=== PATIENT | female | born 1995 | race Caucasian/White ===

== ENCOUNTER 2019-06-07 21:06 | Emergency (ER) | payer MEDICAID ==
[2019-06-07] MEDS ORDERED: ACETAMINOPHEN 325 MG TABLET PO ONE (21:58)
[2019-06-07] MEDS ORDERED: IPRATROPIUM/ALBUTEROL 0.5-2.5 MG/3 ML AMPUL NEB ONE (22:01)
--- NOTE | 2019-06-07 22:01 | ER Document Report ---
ED Medical Screen (RME) - General Chief Complaint: Flu Symptoms Stated Complaint: FLU SYMPTOMS/ Time Seen by Provider: 06/07/19 21:48 Primary Care Provider: BLADIMIR CANDELARIA MD [Primary Care Provider] - Follow up as needed Notes: Patient is a 21-week G1, 23-year-old female who presents to the emergency department with a cough, congestion, and fever. Patient states that she has been taking NyQuil, with little relief. She has had cough for the past week, and a fever for the past 5 days. Exam: Expiratory wheezes noted throughout all lung solomon. I have greeted and performed a rapid initial assessment of this patient. A comprehensive ED assessment and evaluation of the patient, analysis of test results and completion of medical decision making process will be conducted by an additional ED providers. TRAVEL OUTSIDE OF THE [place] IN LAST 30 DAYS: No - Related Data Allergies/Adverse Reactions: No Known Allergies Allergy (Verified 06/07/19 21:49) Home Medications: See med rec Past Medical History - Social History Chew tobacco use (# tins/day): No Frequency of alcohol use: None Drug Abuse: None Physical Exam - Vital signs Vitals: Temp Pulse Resp BP Pulse Ox 98.4 F 129 H 20 152/87 H 97 06/07/19 21:14 06/07/19 21:14 06/07/19 21:14 06/07/19 21:14 06/07/19 21:14 Course - Vital Signs Vital signs: Temp Pulse Resp BP Pulse Ox 99.0 F 81 20 131/78 H 94 06/07/19 21:29 06/07/19 21:29 06/07/19 21:29 06/07/19 21:29 06/07/19 21:29 Doctor's Discharge - Discharge Referrals: BLADIMIR CANDELARIA MD [Primary Care Provider] - Follow up as needed
--- NOTE | 2019-06-07 22:53 | RADIOLOGY REPORT (SQ) ---
EXAM DESCRIPTION: [facility]: XR CHEST 1 VIEW CLINICAL HISTORY: 23 years Female, cough/fever COMPARISON: None. FINDINGS: Lungs are clear, with no focal infiltrate, pneumothorax, or pleural effusion. Mediastinum is within normal limits for this positioning. Bony structures are unremarkable. IMPRESSION: 1. No acute pulmonary findings.
[2019-06-07 23:03] LABS: A TYPE INFLUENZA AG NEGATIVE (NEGATIVE); B INFLUENZA AG NEGATIVE (NEGATIVE)
[2019-06-08] MEDS ORDERED: IPRATROPIUM/ALBUTEROL 0.5-2.5 MG/3 ML AMPUL NEB ONE (00:09)
--- NOTE | 2019-06-08 01:48 | ER Document Report ---
ED General - General Chief Complaint: Flu Symptoms Stated Complaint: FLU SYMPTOMS/ Time Seen by Provider: 06/07/19 21:48 Primary Care Provider: BLADIMIR CANDELARIA MD [ACTIVE STAFF] - Follow up as needed TRAVEL OUTSIDE OF THE [place] IN LAST 30 DAYS: No - HPI Notes: 23-year-old female 1 para 0 at 22 weeks EGA otherwise generally healthy reporting a 10-day history of flulike symptoms. She is experienced dull headache nasal congestion cough and nausea without vomiting. Fluid intake is good at this time. She has had low-grade fever intermittently. She smokes 3 to 4 cigarettes/day. She reports that within the last 2 days she has been blowing "green snot" out of her nose and is now experiencing a pressure sensation in the right cheek area. She feels like she is getting worse. - Related Data Allergies/Adverse Reactions: No Known Allergies Allergy (Verified 06/07/19 21:49) Home Medications: See med rec Past Medical History - Social History Smoking Status: Current Every Day Smoker Chew tobacco use (# tins/day): No Frequency of alcohol use: None Drug Abuse: None Lives with: Friend Family History: Reviewed & Not Pertinent Patient has suicidal ideation: No Patient has homicidal ideation: No Physical Exam - Vital signs Vitals: Temp Pulse Resp BP Pulse Ox 98.4 F 129 H 20 152/87 H 97 06/07/19 21:14 06/07/19 21:14 06/07/19 21:14 06/07/19 21:14 06/07/19 21:14 Course - Re-evaluation Re-evalutation: 06/08/19 02:12 heart tones by Doppler obtained by the nurse 150 left lower quadrant. Clinically the patient has sinusitis. Her influenza a and B screens were both negative and her chest x-ray was normal. Patient is a smoker and she is encouraged to stop because of the respiratory infection as well as her . She will be treated with amoxicillin and Tylenol and is to increase oral fluids. 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 Return here as needed for new or worsening symptoms. - Vital Signs Vital signs: Temp Pulse Resp BP Pulse Ox 99.0 F 81 20 131/78 H 94 06/07/19 21:29 06/07/19 21:29 06/07/19 21:29 06/07/19 21:29 06/07/19 21:29 Discharge - Discharge Clinical Impression: Cigarette smoker, Intrauterine Acute sinusitis Qualifiers: Sinusitis location: maxillary Recurrence: non-recurrent Qualified Code(s): J 01.00 - Acute maxillary sinusitis, unspecified Condition: Stable Disposition: HOME, SELF-CARE Additional Instructions: Stop Smoking You should stop smoking. The tar and chemicals in cigarette smoke are harmful. Smoking has been shown to cause: Emphysema and chronic bronchitis Lung cancer Cancer of the mouth, larynx, stomach, and pancreas Heart disease and stroke Stillbirths and miscarriage Premature aging In addition, smoking increases the chances of respiratory infections and ear infections in children of smokers, and increases the risk of cancer in persons exposed to second-hand smoke. Classes are available to help you stop smoking. If you are serious about wanting to quit, we can help arrange this therapy for you, or you can contact the local lung or cancer association. Sinusitis You have sinusitis, an infection of the sinus cavities of the face. The sinuses are air-filled chambers which open into the inside of the nose. Bacteria and pus fill a sinus, causing pain, drainage, and fever. Sinusitis is treated with antibiotics. Often, expectorants (to thin the sinus mucous) or decongestants (to reduce swelling) are prescribed as well. Healing requires seven to 10 days. Avoid chemical fumes, pollens, dusts, and smoke (especially cigarette smoke). Keep the air humidified in your bedroom and work area and take plenty of liquids by mouth. This condition can be serious if the infection spreads. If your symptoms worsen, or if you develop severe headache, high fever, stiff neck, or a rash, you must call the doctor or return for re-evaluation. Follow-up with your [facility]ES E[facility]ECTIV[facility]ESS MANAGER clinic. Stop smoking. Increase oral fluids. Take Tylenol as necessary. Return here as needed for new or worsening symptoms. Prescriptions: Amoxicillin 1 tab PO TID 10 Days #30 tab Referrals: BLADIMIR CANDELARIA MD [ACTIVE STAFF] - Follow up as needed
[2019-06-08 02:31] VITALS: BP 125/83
== END 2019-06-08 02:31 | disposition home or self-care (01) ==
LOC: ER 21:06
DX: O99.512 Diseases of the respiratory system complicating pregnancy, second trimester (principal); J01.00 Acute maxillary sinusitis, unspecified; O26.892 Other specified pregnancy related conditions, second trimester; R51 Headache; R09.81 Nasal congestion; R11.0 Nausea; R05 Cough; R50.9 Fever, unspecified; O99.332 Smoking (tobacco) complicating pregnancy, second trimester; Z3A.22 22 weeks gestation of pregnancy
CPT/HCPCS: 87804; 71045; J3490; J7620 ×2; 94640; 99284

== ENCOUNTER 2019-09-02 19:41 | Inpatient (IN) | payer MEDICAID ==
--- NOTE | 2019-09-02 20:22 | Admission Physical ---
Datetime Report Generated by CPN: 09/02/2019 20:22 CURRENT ADMISSION Chief Complaint: Suspected Ruptured Membranes Admit Impression : , Intrauterine ; Ruptured Membranes Admit Plan: Admit to Unit; Initiate Labor Protocol ALLERGIES Medication Allergies: No Known Allergies (09/02/2019) OBSTETRICAL HISTORY EDC: 10/15/2019 00:00 : 1 Para: 0 PHYSICAL EXAM General: Normal HEENT: Normal Neurologic: Normal Thyroid: Normal Heart: Normal Lungs: Normal Breast: Deferred Back: Normal Abdomen: Normal Genitourinary Exam: Normal Extremities: Normal DTRs: Normal Pelvic Type: Adequate Vital Signs: Reviewed FETUS A EGA: 33.6 Monitoring: External US FHR- Baseline: 160 Variability: Minimal - Undetectable to <=5bpm Decelerations: None FHR Category: Category I Presentation: Vertex Admit Comment: Admit and begin abx and steroids. INFORMED CONSENT Signature: with User ID: [email or web address]
[2019-09-02] MEDS ORDERED: AMPICILLIN SODIUM 2 GM in NORMAL SALINE 100 ML IV ONE (20:51)
[2019-09-02 20:54] LABS: APPEARANCE,URINE SLIGHTLY-CLOUDY; BILIRUBIN,URINE NEGATIVE (NEGATIVE); CALCIUM OXALATE CRYSTALS,URINE MODERATE /HPF; COLOR,URINE YELLOW; GLUCOSE, URINE NEGATIVE (NEGATIVE); KETONES,URINE NEGATIVE (NEGATIVE); LEUKOCYTE ESTERASE,URINE TRACE (NEGATIVE); NITRITE,URINE NEGATIVE (NEGATIVE); PROTEIN,URINE 30 mg/dL (NEGATIVE); URINE SPECIFIC GRAVITY 1.024; UROBILINOGEN,URINE NEGATIVE mg/dL (<2.0)
[2019-09-02] MEDS ORDERED: AMPICILLIN SOD INJ 2 GM VIAL ONE (21:06)
[2019-09-02] MEDS ORDERED: BETAMET ACET/BETAMET NA INJ 6 MG/1 ML ONE (21:06)
[2019-09-02 21:11] LABS: URINE AMPHETAMINES SCREEN NEGATIVE; URINE BARBITURATES SCREEN NEGATIVE; URINE BENZODIAZEPINES SCREEN NEGATIVE; URINE COCAINE SCREEN NEGATIVE; URINE METHADONE SCREEN NEGATIVE; URINE PHENCYCLIDINE SCREEN NEGATIVE
[2019-09-02] MEDS: BETAMET ACET/BETAMET NA INJ 6 MG/1 ML IM PRN (21:15)
[2019-09-02] MEDS: RINGERS SOLUTION,LACTATED 1,000 ML IV PRN (21:16)
[2019-09-02 21:18] LABS: URINE MARIJUANA (THC) SCREEN UNCONFIRMED POSITIVE
--- NOTE | 2019-09-02 22:19 | RADIOLOGY REPORT (SQ) ---
EXAM DESCRIPTION: Limited OB ultrasound CLINICAL HISTORY: 24 years Female; ROM TECHNIQUE: Transabdominal obstetrical ultrasound was performed. COMPARISON: None. FINDINGS: Number of fetuses: Single position: Cephalic Amniotic fluid: Severe oligohydramnios is identified. Only a single pocket of fluid is identified which measures 1.7 x 0.9 cm. Cervix: Not well seen secondary to the head Placenta: Posterior. Grade 1/2 HR: 132 bpm Biometry: BPD: 8.66 cm, 35 weeks zero days, 78th percentile HC: 31.61 cm, 35 weeks four days, 56th percentile AC: 29.46 cm, 33 weeks three days, 41st percentile FL: 6.62 cm, 34 weeks one day, 46th percentile EFW: 2321 g, 46th percentile Composite Gestational Age: 34 weeks four days estimated delivery date: 10/10/2019 Anatomic survey was not performed IMPRESSION: 1. Single living intrauterine in cephalic presentation. 2. Estimated gestational age by ultrasound is 34 weeks four days with estimated delivery date of 10/10/2019. 3. Severe oligohydramnios
[2019-09-02 22:20] LABS: ABSOLUTE EOSINOPHILS # (AUTO) 0.1 10^3/uL (0.0-0.6); ABSOLUTE LYMPHOCYTES (AUTO) 2.3 10^3/uL (0.5-4.7); ABSOLUTE MONOCYTES (AUTO) 0.6 10^3/uL (0.1-1.4); ABSOLUTE NEUT (AUTO) 11.5 10^3/uL (1.7-8.2); BASOPHILS % (AUTO) 0.2 % (0-2); EOSINOPHILS % (AUTO) 0.5 % (0-6); HEMATOCRIT 30.9 % (36.0-47.0); HEMOGLOBIN 10.3 g/dL (12.0-15.5); LYMPHOCYTES % (AUTO) 15.9 % (13-45); MEAN CORPUSCULAR HEMOGLOBIN 26.2 pg (27.0-33.4); MEAN CORPUSCULAR HGB CONC 33.4 g/dL (32.0-36.0); MEAN CORPUSCULAR VOLUME 79 fl (80-97); MONOCYTES % (AUTO) 4.4 % (3-13); PLATELET COUNT 272 10^3/uL (150-450); RED BLOOD COUNT 3.94 10^6/uL (3.72-5.28); RED CELL DISTRIBUTION WIDTH 17.4 % (11.5-14.0); TOTAL CELLS COUNTED % (AUTO) 100 %; WHITE BLOOD COUNT 14.6 10^3/uL (4.0-10.5)
[2019-09-02] MEDS ORDERED: ACETAMINOPHEN 325 MG TABLET ONE (23:32)
[2019-09-03 00:20] LABS: CHLAM PCR NOT DETECTED (NOT DETECT)
[2019-09-03] MEDS ORDERED: ZOLPIDEM TARTRATE 5 MG TABLET ONE ×2 (00:53→20:24)
[2019-09-03] MEDS ORDERED: AMPICILLIN SOD INJ 1 GM VIAL IV PRN (01:00)
[2019-09-03] MEDS: ZOLPIDEM TARTRATE 5 MG TABLET PO PRN ×2 (01:05→20:26)
[2019-09-03] MEDS ORDERED: AMPICILLIN SOD INJ 1 GM VIAL IM SCH (03:00)
[2019-09-03] MEDS ORDERED: AMPICILLIN SOD INJ 2 GM VIAL IM SCH (03:00)
[2019-09-03] MEDS ORDERED: AMPICILLIN SOD INJ 2 GM VIAL ONE (05:37)
[2019-09-03] MEDS: AMPICILLIN SODIUM 2 GM in NORMAL SALINE 100 ML IV SCH ×4 (05:42→23:00)
--- NOTE | 2019-09-03 10:15 | Warning Signs in Babies ---
VOD Warning Signs Datetime Report Generated by [facility]: 09/03/2019 10:14 VOD#[id number] -Warning Signs in Babies: Viewed with Parent(s)/Family (09/03/2019 10:13:Van Valentin RN)
[2019-09-03] MEDS ORDERED: BETAMET ACET/BETAMET NA INJ 6 MG/1 ML ONE (14:57)
[2019-09-03] MEDS: BETAMET ACET/BETAMET NA INJ 6 MG/1 ML IM PRN (15:02)
[2019-09-03] MEDS ORDERED: MISOPROSTOL 0.2 MG TABLET ONE (16:05)
[2019-09-03] MEDS ORDERED: OXYTOCIN 10 UNIT/ML VIAL ONE (16:05)
[2019-09-03] MEDS ORDERED: OXYTOCIN/NORMAL SALINE 20 UNIT/1,000 ML RTUINJ ONE (16:06)
[2019-09-03] MEDS ORDERED: LIDOCAINE 1% INJ-PF (10 MG/ML) 30 ML SDV ONE (16:06)
[2019-09-03] MEDS: BENZOCAINE/MENTHOL SORE THROAT LOZENGE BUCCAL PRN (16:11)
[2019-09-03] MEDS ORDERED: BETAMET ACET/BETAMET NA INJ 6 MG/1 ML IM PRN (16:34)
[2019-09-03] MEDS ORDERED: ACETAMINOPHEN 325 MG TABLET PO ONE (21:00)
[2019-09-03] MEDS ORDERED: ACETAMINOPHEN 325 MG TABLET ONE (21:01)
[2019-09-04] MEDS: AMPICILLIN SODIUM 2 GM in NORMAL SALINE 100 ML IV SCH ×2 (04:09→16:27)
[2019-09-04] MEDS ORDERED: CARBOPROST TROMETHAMINE INJ 250 MCG/1 ML AMPULE ONE (08:21)
[2019-09-04] MEDS ORDERED: METHYLERGONOVINE MALEATE INJ/PF 0.2 MG/1 ML AMPULE ONE (08:21)
[2019-09-04] MEDS ORDERED: MISOPROSTOL 0.1 MG TABLET ONE ×2 (11:38→21:03)
[2019-09-04] MEDS ORDERED: ACETAMINOPHEN 325 MG TABLET ONE (15:18)
[2019-09-04] MEDS: BENZOCAINE/MENTHOL SORE THROAT LOZENGE BUCCAL PRN ×2 (16:27→17:59)
[2019-09-04] MEDS ORDERED: MISOPROSTOL 0.1 MG TABLET PO SCH (18:00)
[2019-09-04] MEDS ORDERED: ZOLPIDEM TARTRATE 5 MG TABLET ONE (21:45)
[2019-09-04] MEDS: ZOLPIDEM TARTRATE 5 MG TABLET PO PRN (21:47)
[2019-09-04] MEDS: GUAIFENESIN SYRP 200 MG/10 ML UDC PO PRN (21:47)
[2019-09-04] MEDS ORDERED: AMPICILLIN SOD INJ 2 GM VIAL ONE (22:09)
[2019-09-05] MEDS ORDERED: MISOPROSTOL 0.1 MG TABLET ONE (01:24)
[2019-09-05] MEDS: GUAIFENESIN SYRP 200 MG/10 ML UDC PO PRN ×4 (01:38→23:49)
[2019-09-05] MEDS ORDERED: AMPICILLIN SOD INJ 2 GM VIAL ONE (03:54)
[2019-09-05] MEDS: AMPICILLIN SODIUM 2 GM in NORMAL SALINE 100 ML IV SCH ×2 (04:23→10:05)
[2019-09-05] MEDS ORDERED: ACETAMINOPHEN 325 MG TABLET PO ONE ×2 (07:23→07:24)
[2019-09-05] MEDS ORDERED: CLINDAMYCIN 900 MG/D5W RTU 900 MG/50 ML RTUPB IV ONE ×2 (07:24→16:34)
[2019-09-05] MEDS ORDERED: ACETAMINOPHEN 325 MG TABLET ONE (07:24)
[2019-09-05] MEDS: CLINDAMYCIN 900 MG/D5W RTU 900 MG/50 ML RTUPB IV SCH ×3 (07:35→22:18)
[2019-09-05] MEDS ORDERED: OXYTOCIN/NORMAL SALINE 20 UNIT/1,000 ML RTUINJ IV PRN ×2 (08:30→19:21)
[2019-09-05] MEDS ORDERED: HYDROMORPHONE HCL INJ/PF 2 MG/ML AMPULE IV ONE (11:48)
[2019-09-05] MEDS ORDERED: HYDROMORPHONE HCL INJ/PF 2 MG/ML AMPULE ONE (11:55)
[2019-09-05 12:35] LABS: A TYPE INFLUENZA AG POSITIVE (NEGATIVE); B INFLUENZA AG POSITIVE (NEGATIVE)
[2019-09-05] MEDS: RINGERS SOLUTION,LACTATED 1,000 ML IV PRN ×2 (13:45→22:18)
[2019-09-05] MEDS ORDERED: PHENYLEPHRINE HCL INJ/PF 10 MG/1 ML SDV ONE (15:04)
[2019-09-05] MEDS ORDERED: EPHEDRINE SULFATE INJ 50 MG/1 ML AMPULE ONE (15:05)
[2019-09-05] MEDS ORDERED: FENTANYL/BUPIVACAINE/NS/PF 300 MCG/150 ML RTUINJ EPI ONE (15:05)
[2019-09-05] MEDS ORDERED: FENTANYL CITRATE INJ/PF 100 MCG/2 ML AMPUL ONE ×2 (15:05→18:34)
[2019-09-05] MEDS ORDERED: BUPIVACAINE HCL 0.25 % INJ/PF (2.5 MG/1 ML) 30 ML VIAL ONE (15:05)
[2019-09-05 15:25] LABS: ABSOLUTE NEUT (AUTO) 8.2 10^3/uL (1.7-8.2); BASOPHILS % (AUTO) 0.2 % (0-2); EOSINOPHILS % (AUTO) 0.1 % (0-6); HEMATOCRIT 28.5 % (36.0-47.0); HEMOGLOBIN 9.7 g/dL (12.0-15.5); LYMPHOCYTES % (AUTO) 9.9 % (13-45); MEAN CORPUSCULAR HEMOGLOBIN 26.3 pg (27.0-33.4); MEAN CORPUSCULAR HGB CONC 33.9 g/dL (32.0-36.0); MEAN CORPUSCULAR VOLUME 78 fl (80-97); MONOCYTES % (AUTO) 9.7 % (3-13); PLATELET COUNT 196 10^3/uL (150-450); RED BLOOD COUNT 3.67 10^6/uL (3.72-5.28); RED CELL DISTRIBUTION WIDTH 17.5 % (11.5-14.0); SEGMENTED NEUTROPHILS % (AUTO) 80.1 % (42-78); TOTAL CELLS COUNTED % (AUTO) 100 %; WHITE BLOOD COUNT 10.2 10^3/uL (4.0-10.5)
[2019-09-05] MEDS ORDERED: CITRIC ACID/SODIUM CITRATE ORAL SOLN 15 ML UDCUP ONE (18:04)
[2019-09-05] MEDS ORDERED: CEFAZOLIN 1 GM/D5W RTU 2 GM/100 ML RTUPB IV ONE (18:04)
[2019-09-05] MEDS ORDERED: LIDOCAINE 2% INJ-PF (20 MG/ML) 10 ML AMPUL ONE (18:04)
[2019-09-05] MEDS ORDERED: LIDOCAINE 1.5%/EPINEPHRINE INJ 5 ML AMP ONE ×2 (18:12→18:13)
[2019-09-05] MEDS ORDERED: LIDOCAINE 2%/EPINEPHRINE INJ 20 ML VIAL ONE (18:13)
[2019-09-05] MEDS ORDERED: ONDANSETRON HCL INJ/PF 4 MG/2 ML SDV ONE (18:21)
[2019-09-05] MEDS ORDERED: OXYTOCIN 10 UNIT/ML VIAL ONE ×2 (18:21→18:37)
[2019-09-05] MEDS ORDERED: MIDAZOLAM 2 MG/2 ML INJ ONE ×2 (18:34→18:44)
[2019-09-05] MEDS ORDERED: DEXTROSE 50%-WATER 25 GM/50 ML DISP.SYRIN IV PRN ×2 (19:21)
[2019-09-05] MEDS ORDERED: MEASLES,MUMPS&RUBELLA VACC/PF 0.5 ML VIAL SUBCUT PRN (19:21)
[2019-09-05] MEDS ORDERED: PROMETHAZINE HCL INJ 25 MG/1 ML VIAL IV PRN (19:21)
[2019-09-05] MEDS ORDERED: GLUCAGON,HUMAN RECOMB 1 MG INJ SUBCUT PRN (19:21)
[2019-09-05] MEDS ORDERED: SIMETHICONE 80 MG TAB.CHEW PO PRN (19:21)
[2019-09-05] MEDS ORDERED: DIPH/PERTUSS(ACELL)/TETANUS VAC/PF 0.5 ML SYR (>=10YO) IM PRN (19:21)
[2019-09-05] MEDS ORDERED: ACETAMINOPHEN 1,000 MG/100 ML RTUPB IV PRN (19:21)
[2019-09-05] MEDS ORDERED: DEXTROSE 40% GEL 15 GM TUBE PO PRN ×2 (19:21)
[2019-09-05] MEDS ORDERED: ACETAMINOPHEN 325 MG TABLET PO PRN (19:21)
--- NOTE | 2019-09-05 19:27 | Operative Report ---
Operative Report DATE OF SURGERY: 09/05/19 PREOPERATIVE DIAGNOSIS: P at 34 weeks rupture membranes nonreassuring f etal tracing chorioamnionitis POSTOPERATIVE DIAGNOSIS: Same OPERATION: Primary low transverse section delivery of a viable female SURGEON: HUGO COOLEY ANESTHESIA: Epidural TISSUE REMOVED OR ALTERED: Placenta ESTIMATED BLOOD LOSS: 1200 cc PROCEDURE: The patient was taken to the operating room where spinal anesthesia was obtained and found to be adequate. She was then prepped and draped in the normal sterile fashion and placed in the dorsal supine position with a leftward tilt. A Pfannenstiel skin incision was then made and carried through to the underlying layers of the fascia with the scalpel. The fascia was incised in the midline and the incision extended laterally with the [place]ough[place] scissors. The superior aspect of the fascial incision was then grasped with [place] clamps elevated and the underlying rectus muscles dissected off bluntly. Attention was then turned to the inferior aspect of the fascial incision which in a similar fashion was grasped, tented up with [place] clamps, and the rectus muscles dissected off bluntly. The rectus muscles were then in the midline and the peritoneum at the amount identified and entered bluntly. The peritoneal incision was then extended superiorly and inferiorly with good visualization of the bladder. [The bladder blade was inserted and the vesicouterine peritoneum identified grasped with American pickups and entered sharply with the Metzenbaum scissors. His incision was then extended laterally with the Metzenbaum scissors and a bladder flap created digitally. The bladder blade was then reinserted and the lower uterine segment incised in a transverse fashion with the scalpel. The uterine incision was then extended bluntly. The bladder blade was removed and the 's head was delivered from cephalic presentation atraumatically. The nose and mouth were suctioned and the cord doubly clamped and cut. And the was handed off to waiting pediatricians. The placenta was then delivered manully and the uterus exteriorized and cleared of all clots and debris. The uterine incision was then repaired with 1-0 Vicryl in a running locked fashion. A second layer of the same suture was used to obtain hemostasis via imbrication of the initial layer. Multiple 2-0 suture was then used in [id number] configuration to control bleeding. Stasis was noted. The uterus was returned to the patient's abdomen. The gutters were cleared of all clots and debris. All operative sites were noted to be hemostatic. The fascia was reapproximated with 0 Vicryl in a running fashion from each lateral edge to the midline. The patient tolerated the procedure well. Sponge lap needle and instrument counts are correct -2. 2 g of Ancef were given prior to skin incision. The patient was taken to the recovery area awake and in stable condition.
--- NOTE | 2019-09-05 19:30 | Operative Report ---
Operative Report DATE OF SURGERY: 09/05/19 PREOPERATIVE DIAGNOSIS: AP at 34 weeks rupture membranes nonreassuring strip chorioamnionitis POSTOPERATIVE DIAGNOSIS: Same OPERATION: Primary low transverse section delivery of viable female SURGEON: HUGO COOLEY ANESTHESIA: Epidural TISSUE REMOVED OR ALTERED: Placenta ESTIMATED BLOOD LOSS: 1200 cc PROCEDURE: The patient was taken to the operating room where spinal anesthesia was obtained and found to be adequate. She was then prepped and draped in the normal sterile fashion and placed in the dorsal supine position with a leftward tilt. A Pfannenstiel skin incision was then made and carried through to the underlying layers of the fascia with the scalpel. The fascia was incised in the midline and the incision extended laterally with the Willoughby scissors. The superior aspect of the fascial incision was then grasped with [place] clamps elevated and the underlying rectus muscles dissected off bluntly. Attention was then turned to the inferior aspect of the fascial incision which in a similar fashion was grasped, tented up with [place] clamps, and the rectus muscles dissected off bluntly. The rectus muscles were then in the midline and the peritoneum at the amount identified and entered bluntly. The peritoneal incision was then extended superiorly and inferiorly with good visualization of the bladder. [The bladder blade was inserted and the vesicouterine peritoneum identified grasped with [place] pickups and entered sharply with the Metzenbaum scissors. His incision was then extended laterally with the Metzenbaum scissors and a bladder flap created digitally. The bladder blade was then reinserted and the lower uterine segment incised in a transverse fashion with the scalpel. The uterine incision was then extended bluntly. The bladder blade was removed and the infant's head was delivered from cephalic presentation atraumatically. The nose and mouth were suctioned and the cord doubly clamped and cut. And the infant was handed off to waiting pediatricians. The placenta was then delivered manully and the uterus exteriorized and cleared of all clots and debris. The uterine incision was then repaired with 1-0 Vicryl in a running locked fashion. A second layer of the same suture was used to obtain hemostasis via imbrication of the initial layer. Multiple [id number] sutures of 2-0 Vicryl were then placed to control bleeding. Stasis was noted. The uterus was returned to the patient's abdomen. The gutters were cleared of all clots and debris. All operative sites were noted to be hemostatic. The fascia was reapproximated with 0 Vicryl in a running fashion from each lateral edge to the midline. The patient tolerated the procedure well. Sponge lap needle and instrument counts are correct -2. 2 g of Ancef were given prior to skin incision. The patient was taken to the recovery area awake and in stable condition.
[2019-09-05] MEDS ORDERED: ACETAMINOPHEN 1,000 MG/100 ML RTUPB IV ONE (20:12)
[2019-09-05] MEDS ORDERED: KETOROLAC TROMETHAMINE INJ/PF 30 MG/1 ML SDV ONE (20:12)
--- NOTE | 2019-09-05 20:41 | Delivery Summary ---
Del Sum A-C Datetime Report Generated by CPN: 09/05/2019 20:41 DELIVERY PERSONNEL DELIVERY PERSONNEL: [id number] Delivery Doctor:: Blane Dickson MD Anesthesiologist:: Consuelo Ram MD DENTAL SERVICES DIRECTOR:: Faustino Simms CRNA Labor and Delivery Nurse:: Kelvin Jimenes RN Arborer:: Kelvin Jimenes RN Financial Reporting Analyst:: Dr Rose Nursery Nurse:: Nicole Wyatt RN Bean Roaster/FIBER ANALYST: Van Valentin CST Bean Roaster/FIBER ANALYST: Susan Patino, ST MATERNAL INFORMATION Delivery Anesthesia: Epidural Medications After Delivery: Other-Please Comment Meds After Delivery Comment: 40 units pitocin in 1000ml of NSS Delivery QBL: 1569 Maternal Complications: Premature Rupture of Membranes; Chorioamnionitis Other Maternal Complications: non reassuring strip LABOR SUMMARY EDC: 10/15/2019 00:00 No. Babies in Womb: 1 Attempted: No Labor Anesthesia: Epidural LABOR INFORMATION Reason for Induction: Premature Rupture of Membranes Onset of Labor: 09/05/2019 11:41 Cervical Ripening Agents: Cytotec @ Oxytocin: Induction Group B Beta Strep: unknown Antibiotics # of Doses: 7 Antibiotics Time of Last Dose: 171 Name of Antibiotic Given: Ampicillin 2G Steroids Given: Full Course; > 24 Hours before Delivery Reason Steroids Not Administered: Not Applicable MEMBRANES Membranes Rupture Method: Spontaneous Rupture of Membranes: 09/02/2019 20:00 Length of Rupture (hr): 70.55 Amniotic Fluid Color: Clear Amniotic Fluid Amount: Moderate Amniotic Fluid Odor: Normal STAGES OF LABOR Stage 3 hr: 0 Stage 3 min: 1 Total Time in Labor hr: 6 Total Time in Labor min: 53 VAGINAL DELIVERY Episiotomy: None Laceration #1: None Laceration Extension #1: N/A Laceration Repair: Not Applicable Sponge Count Correct: N/A Sharps Count Correct: N/A CSECTION DELIVERY Primary Indication: Nonreassuring Status Secondary Indication: N/A CSection Urgency: Non-Scheduled CSection Incidence: Primary Labor: Labor Elective: Nonelective CSection Incision: Lower Uterine Transverse BABY A INFORMATION Delivery Date/Time: 09/05/2019 18:33 Method of Delivery: Nurse Controlled Delivery: No Born in Route : No : N/A Forceps: N/A Vacuum Extraction: N/A Shoulder Dystocia : No PRESENTATION/POSITION BABY A Presentation: Cephalic Cephalic Presentation: Vertex Vertex Position: Left Occipital Anterior Breech Presentation: N/A PLACENTA INFORMATION BABY A Placenta Delivery Time : 09/05/2019 18:34 Placenta Method of Delivery: Manual Removal Placenta Status: Delivered SCORES BABY A Heart Rate 1 min: >100 bpm Resp Effort 1 min: Good Cry Reflex Irritability 1 min: Cough or Sneeze or Pulls Away Muscle Tone 1 min: Active Motion Color 1 min: Blue/Pale Resuscitation Effort 1 min: Tactile Stimulation SCORE 1 MIN: 8 Heart Rate 5 min: >100 bpm Resp Effort 5 min: Good Cry Reflex Irritability 5 min: Cough or Sneeze or Pulls Away Muscle Tone 5 min: Active Motion Color 5 min: Body [place], Extremities Blue Resuscitation Effort 5 min: N/A SCORE 5 MIN: 9 INFORMATION BABY A Gestational Age at Delivery: 34.2 Gestational Status: Late - 34- 36.6 Weeks Outcome : Liveborn Infant Condition : Stable Infant Sex: Male IDENTIFICATION BABY A Infant Verification Date/Time: 09/05/2019 19:38 ID Band Number: [id number] Mother's Name Verified: Yes Infant RN Verifying Infant: Aditya LyonsKIERAN wilkins Additional Verifying Personnel: Jorge, RN WEIGHT/LENGTH BABY A Birthweight (gm): 2600 Weight (lb): 5 Weight (oz): 12 Infant Length (in): 18.50 Infant Length (cm): 46.99 CORD INFORMATION BABY A No. Cord Vessels: 3 Nuchal Cord : N/A Cord Blood Taken: Yes-For Eval (Mom's Blood Type - or O+) Suction: None ASSESSMENT BABY A Infant Complications: Extended Tachycardia; Multiple Late Decels; Multiple Variable Decels Physical Findings at Delivery: Other Physical Findings- Other: see nursery assessment Respirations: Appears Normal Skin to Skin: No Financial Reporting Analyst/ALS Called : No Care By: Nicole Wyatt RN; Michelle Transferred To: NICU BABY B INFORMATION : N/A SIGNATURES Signature: with User ID: [email or web address]
[2019-09-05] MEDS ORDERED: KETOROLAC TROMETHAMINE INJ/PF 30 MG/1 ML SDV IV SCH (22:00)
[2019-09-05] MEDS: OXYCODONE-ACETAMINOPHEN 5-325 MG TABLET PO PRN (22:09)
[2019-09-05] MEDS: MORPHINE SULFATE 10 MG/ML INJ IM PRN (23:50)
[2019-09-06] MEDS: AMPICILLIN SODIUM 2 GM in NORMAL SALINE 100 ML IV SCH ×4 (00:54→19:26)
[2019-09-06] MEDS: OXYCODONE-ACETAMINOPHEN 5-325 MG TABLET PO PRN ×3 (02:14→14:06)
[2019-09-06] MEDS: BENZOCAINE/MENTHOL SORE THROAT LOZENGE BUCCAL PRN ×2 (02:15→09:44)
[2019-09-06] MEDS: MORPHINE SULFATE 10 MG/ML INJ IM PRN ×2 (03:29→06:39)
[2019-09-06] MEDS: KETOROLAC TROMETHAMINE INJ/PF 30 MG/1 ML SDV IV SCH ×2 (05:08→19:39)
[2019-09-06] MEDS: GUAIFENESIN SYRP 200 MG/10 ML UDC PO PRN ×4 (05:28→20:16)
[2019-09-06] MEDS ORDERED: IBUPROFEN 800 MG TABLET PO SCH ×3 (06:00→22:00)
[2019-09-06] MEDS: CLINDAMYCIN 900 MG/D5W RTU 900 MG/50 ML RTUPB IV SCH ×2 (06:09→21:00)
[2019-09-06 08:03] LABS: HEMATOCRIT 26.3 % (36.0-47.0); HEMOGLOBIN 8.9 g/dL (12.0-15.5); MEAN CORPUSCULAR HEMOGLOBIN 26.2 pg (27.0-33.4); MEAN CORPUSCULAR VOLUME 77 fl (80-97); PLATELET COUNT 182 10^3/uL (150-450); RED BLOOD COUNT 3.41 10^6/uL (3.72-5.28); RED CELL DISTRIBUTION WIDTH 17.4 % (11.5-14.0); WHITE BLOOD COUNT 9.3 10^3/uL (4.0-10.5)
[2019-09-06] MEDS: DOCUSATE SODIUM 100 MG CAPSULE PO SCH ×2 (09:44→20:19)
[2019-09-06] MEDS: PRENATAL VITAMIN W DHA CAPSULE PO SCH (09:44)
--- NOTE | 2019-09-06 10:40 | PDOC PROGRESS REPORT ---
Subjective-OB Progress Note for:: 09/06/19 - POD #1 s/p . Pt diagnosed w/ the Flu finishing antibiotics. Baby in NICU due to 34 wk delivery. Pt states she is feeling okay today, Denies SOB. B+, Rubella Immune, . lacey cath re moved, pt still needs up to void Physical Exam (OB) Vital Signs: Temp Pulse Resp BP Pulse Ox 97.6 F 78 20 121/63 100 09/06/19 08:14 09/06/19 08:14 09/06/19 08:14 09/06/19 08:14 09/06/19 08:14 Intake & Output 09/05/19 09/06/19 09/07/19 06:59 06:59 06:59 Intake Total 300 1800 Output Total 1989 Balance 300 -190 - General General Appearance: Appears well, Alert - PIH/Pre-Eclampsia Headache: Absent Epigastric Pain: No Visual Changes: No - Dressing Removed: No Incision: Dressing - Lochia Lochia Amount: Scant < 10 ml Lochia Color: Rubra/Red - Abdomen Description: Tender, Soft Hernia Present: No Fundal Description: Firm, Midline Fundal Height: u/u - u/2 - Respiratory Respiratory Status: No respiratory distress Breath sounds: Clear - Cardiovascular Rhythm: Regular Heart Sounds: Normal auscultation - Abdominal Distension: No distension Tenderness: Nontender Abdominal Notes: +bowel sounds - Genitourinary Genitourinary Note: to void still - Extremities Lower extremities: Edema - Neurological Cognition: Normal Orientation: AAOx4 - Psychological Associated symptoms: Normal affect, Normal mood - Skin Skin Temperature: Warm Skin Moisture: Dry Objective-Diagnostic Laboratory: 09/06/19 07:52 09/04/19 06:15 09/05/19 09/06/19 15:06 07:52 WBC 10.2 9.3 RBC 3.67 L 3.41 L Hgb 9.7 L 8.9 L Hct 28.5 L 26.3 L MCV 78 L 77 L MCH 26.3 L 26.2 L MCHC 33.9 34.0 RDW 17.5 H 17.4 H Plt Count 196 182 Seg Neutrophils % 80.1 H 09/02/19 22:30 Vaginal/Anorectal Group B Streptococcus Culture - Final GROUP B BETA HEMOLYTIC STREPTOCOCCUS RECOVERED Assessment and Plan(PN) - Assessment and Plan (1) Status post primary low transverse section Is this a current diagnosis for this admission?: Yes (2) 34 weeks gestation of Is this a current diagnosis for this admission?: Yes (3) Flu syndrome Is this a current diagnosis for this admission?: Yes (4) Anemia affecting Qualifiers: Trimester: third trimester Qualified Code(s): O99.013 - Anemia complicating , third trimester Is this a current diagnosis for this admission?: Yes (5) Tobacco use affecting in third trimester, antepartum Is this a current diagnosis for this admission?: Yes Plan:: Ambulation encouraged. Routine Post Op, PP orders - Time Spent with Patient Time with patient: Less than 15 minutes Medications reviewed and adjusted accordingly: Yes - Disposition Anticipated Discharge: Home Within: within 48 hours
[2019-09-06] MEDS ORDERED: KETOROLAC TROMETHAMINE INJ/PF 30 MG/1 ML SDV IV ONE (19:45)
[2019-09-07] MEDS: IBUPROFEN 800 MG TABLET PO SCH ×5 (00:30→23:15)
[2019-09-07] MEDS: AMPICILLIN SODIUM 2 GM in NORMAL SALINE 100 ML IV SCH ×2 (00:31→05:35)
[2019-09-07] MEDS: ZOLPIDEM TARTRATE 5 MG TABLET PO PRN ×2 (00:31→23:15)
[2019-09-07] MEDS: GUAIFENESIN SYRP 200 MG/10 ML UDC PO PRN ×4 (02:00→22:08)
[2019-09-07] MEDS: CLINDAMYCIN 900 MG/D5W RTU 900 MG/50 ML RTUPB IV SCH ×2 (02:00→10:33)
[2019-09-07] MEDS: OXYCODONE-ACETAMINOPHEN 5-325 MG TABLET PO PRN ×4 (03:24→22:08)
[2019-09-07] MEDS: BENZOCAINE/MENTHOL SORE THROAT LOZENGE BUCCAL PRN ×4 (03:33→22:08)
[2019-09-07] MEDS: RINGERS SOLUTION,LACTATED 1,000 ML IV PRN (05:36)
[2019-09-07] MEDS: DOCUSATE SODIUM 100 MG CAPSULE PO SCH ×2 (10:34→17:33)
[2019-09-07] MEDS: PRENATAL VITAMIN W DHA CAPSULE PO SCH (10:34)
--- NOTE | 2019-09-07 11:41 | PDOC PROGRESS REPORT ---
Subjective-OB Progress Note for:: 09/07/19 Subjective: Pt is resting, she reports feeling better, is better. Reports light bleeding, reg diet and voiding without difficulty. She is passing flatus and is ambulatory. Droplet precautions. Physical Exam (OB) Vital Signs: Temp Pulse Resp BP Pulse Ox 97.4 F 77 20 121/63 97 09/07/19 11:24 09/07/19 11:24 09/07/19 11:24 09/07/19 11:24 09/07/19 11:24 Intake & Output 09/06/19 09/07/19 09/08/19 06:59 06:59 06:59 Intake Total 2800 1600 150 Output Total 1990 500 Balance 810 1100 150 - Dressing Removed: Yes Incision: Well Approximated Closure Type: Surgical Glue - Lochia Lochia Amount: Small 10-25 ml Lochia Color: Rubra/Red - Abdomen Description: Firm, Round Hernia Present: No Fundal Description: Firm, Midline Fundal Height: u/u - u/2 Objective-Diagnostic Laboratory: 09/06/19 07:52 09/04/19 06:15 09/02/19 22:30 Vaginal/Anorectal Group B Streptococcus Culture - Final Assessment and Plan(PN) - Assessment and Plan (1) 34 weeks gestation of Is this a current diagnosis for this admission?: Yes (2) Anemia affecting Qualifiers: Trimester: third trimester Qualified Code(s): O99.013 - Anemia complicating , third trimester Is this a current diagnosis for this admission?: Yes (3) Chorioamnionitis in third trimester Qualifiers: Fetus number: single or unspecified fetus Qualified Code(s): O41.1230 - Chorioamnionitis, third trimester, not applicable or unspecified Is this a current diagnosis for this admission?: Yes (4) Flu syndrome Is this a current diagnosis for this admission?: Yes (5) Status post primary low transverse section Is this a current diagnosis for this admission?: Yes (6) Tobacco use affecting in third trimester, antepartum Is this a current diagnosis for this admission?: Yes - Time Spent with Patient Time with patient: Less than 15 minutes Medications reviewed and adjusted accordingly: Yes - Disposition Anticipated Discharge: Home Within: within 24 hours
[2019-09-08] MEDS: IBUPROFEN 800 MG TABLET PO SCH ×2 (06:31→13:57)
[2019-09-08] MEDS: PRENATAL VITAMIN W DHA CAPSULE PO SCH (09:53)
[2019-09-08] MEDS: DOCUSATE SODIUM 100 MG CAPSULE PO SCH (09:53)
[2019-09-08] MEDS: OXYCODONE-ACETAMINOPHEN 5-325 MG TABLET PO PRN (09:53)
--- NOTE | 2019-09-08 12:35 | PDOC DISCHARGE SUMMARY ---
Impression - Admit/DC Date/PCP Admission Date/Primary Care Provider: 09/02/19 20:53 SHELBI QUINTERO MD Discharge Date: 09/08/19 - Discharge Diagnosis (1) Status post primary low transverse section Is this a current diagnosis for this admission?: Yes (2) 34 weeks gestation of Is this a current diagnosis for this admission?: Yes (3) Flu syndrome Is this a current diagnosis for this admission?: Yes (4) Anemia affecting Is this a current diagnosis for this admission?: Yes (5) Tobacco use affecting in third trimester, antepartum Is this a current diagnosis for this admission?: Yes (6) Chorioamnionitis in third trimester Is this a current diagnosis for this admission?: Yes - Additional Information Discharge Diet: Regular Discharge Activity: Activity As Tolerated, No Lifting Over 10 Pounds, No Lifting/Push/Pulling, No tub bath Referrals: SHELBI QUINTERO MD [Primary Care Provider] - Prescriptions: Ferrous Sulfate [Feosol 325 mg Tablet] 325 mg PO MEALS #90 tab Ibuprofen [Motrin 800 mg Tablet] 800 mg PO Q8HP PRN #90 tablet PRN Reason: Oxycodone HCl/Acetaminophen [Percocet 5-325 mg Tablet] 1 tab PO Q4HP PRN #30 tablet PRN Reason: Home Medications: Pnv No.95/Ferrous Fum/Folic AC [ Caplet] 1 each PO DAILY 06/07/19 Ferrous Sulfate [Feosol 325 mg Tablet] 325 mg PO MEALS #90 tab 09/08/19 Ibuprofen [Motrin 800 mg Tablet] 800 mg PO Q8HP PRN #90 tablet 09/08/19 Oxycodone HCl/Acetaminophen [Percocet 5-325 mg Tablet] 1 tab PO Q4HP PRN #30 tablet 09/08/19 HPI Gestational Age: 34 Reason(s) for Admission: PROM Intrapartum Procedure(s): : Low Cervical, Transverse Results Laboratory Results: WBC 9.3 10^3/uL (4.0-10.5) 09/06/19 07:52 RBC 3.41 10^6/uL (3.72-5.28) L 09/06/19 07:52 Hgb 8.9 g/dL (12.0-15.5) L 09/06/19 07:52 Hct 26.3 % (36.0-47.0) L 09/06/19 07:52 MCV 77 fl (80-97) L 09/06/19 07:52 MCH 26.2 pg (27.0-33.4) L 09/06/19 07:52 MCHC 34.0 g/dL (32.0-36.0) 09/06/19 07:52 RDW 17.4 % (11.5-14.0) H 09/06/19 07:52 Plt Count 182 10^3/uL (150-450) 09/06/19 07:52 Lymph % (Auto) 9.9 % (13-45) L 09/05/19 15:06 [place] % (Auto) 9.7 % (3-13) 09/05/19 15:06 Eos % (Auto) 0.1 % (0-6) 09/05/19 15:06 Baso % (Auto) 0.2 % (0-2) 09/05/19 15:06 Absolute Neuts (auto) 8.2 10^3/uL (1.7-8.2) 09/05/19 15:06 Absolute Lymphs (auto) 1.0 10^3/uL (0.5-4.7) 09/05/19 15:06 Absolute Monos (auto) 1.0 10^3/uL (0.1-1.4) 09/05/19 15:06 Absolute Eos (auto) 0.0 10^3/uL (0.0-0.6) 09/05/19 15:06 Absolute Basos (auto) 0.0 10^3/uL (0.0-0.2) 09/05/19 15:06 Seg Neutrophils % 80.1 % (42-78) H 09/05/19 15:06 Platelet Estimate Cancelled 09/04/19 06:51 Sodium Cancelled 09/04/19 06:15 Potassium Cancelled 09/04/19 06:15 Chloride Cancelled 09/04/19 06:15 Carbon Dioxide Cancelled 09/04/19 06:15 Anion Gap Cancelled 09/04/19 06:15 BUN Cancelled 09/04/19 06:15 Creatinine Cancelled 09/04/19 06:15 Est GFR ( Amer) Cancelled 09/04/19 06:15 Est GFR (Non-Af Amer) Cancelled 09/04/19 06:15 Est GFR (MDRD) Non-Af Cancelled 09/04/19 06:15 Glucose Cancelled 09/04/19 06:15 Uric Acid Cancelled 09/04/19 06:15 Calcium Cancelled 09/04/19 06:15 Total Bilirubin Cancelled 09/04/19 06:15 Direct Bilirubin Cancelled 09/04/19 06:15 Neonat Total Bilirubin Cancelled 09/04/19 06:15 Neonat Direct Bilirubin Cancelled 09/04/19 06:15 Neonat Indirect Bili Cancelled 09/04/19 06:15 AST Cancelled 09/04/19 06:15 ALT Cancelled 09/04/19 06:15 Alkaline Phosphatase Cancelled 09/04/19 06:15 Lactate Dehydrogenase Cancelled 09/04/19 06:15 Total Protein Cancelled 09/04/19 06:15 Albumin Cancelled 09/04/19 06:15 EGFR Cancelled 09/04/19 06:15 Urine Color YELLOW 09/02/19 20:13 Urine Appearance SLIGHTLY-CLOUDY 09/02/19 20:13 Urine pH 5.0 (5.0-9.0) 09/02/19 20:13 Ur Specific [place] 1.024 09/02/19 20:13 Urine Protein 30 mg/dL (NEGATIVE) H 09/02/19 20:13 Urine Glucose (UA) NEGATIVE mg/dL (NEGATIVE) 09/02/19 20:13 Urine Ketones NEGATIVE mg/dL (NEGATIVE) 09/02/19 20:13 Urine Blood SMALL (NEGATIVE) H 09/02/19 20:13 Urine Nitrite NEGATIVE (NEGATIVE) 09/02/19 20:13 Urine Bilirubin NEGATIVE (NEGATIVE) 09/02/19 20:13 Urine Urobilinogen NEGATIVE mg/dL (<2.0) 09/02/19 20:13 Ur Leukocyte Esterase TRACE (NEGATIVE) H 09/02/19 20:13 Urine WBC (Auto) 4 /HPF 09/02/19 20:13 Urine RBC (Auto) 13 /HPF 09/02/19 20:13 Urine Bacteria (Auto) TRACE /HPF 09/02/19 20:13 Squamous Epi Cells Auto 5 /HPF 09/02/19 20:13 Calcium Oxalate Cr Auto MODERATE /HPF 09/02/19 20:13 Urine Mucus (Auto) RARE /LPF 09/02/19 20:13 Urine Ascorbic Acid NEGATIVE (NEGATIVE) 09/02/19 20:13 Membranes Rupture POSITIVE (NEGATIVE) H 09/02/19 20:13 Urine Opiates Screen NEGATIVE 09/02/19 20:13 Urine Methadone Screen NEGATIVE 09/02/19 20:13 Ur Barbiturates Screen NEGATIVE 09/02/19 20:13 Ur Phencyclidine Scrn NEGATIVE 09/02/19 20:13 Ur Amphetamines Screen NEGATIVE 09/02/19 20:13 U Benzodiazepines Scrn NEGATIVE 09/02/19 20:13 Urine Cocaine Screen NEGATIVE 09/02/19 20:13 U Marijuana (THC) Screen UNCONFIRMED POSITIVE 09/02/19 20:13 RPR NONREACTIVE (NONREACTIVE) 09/02/19 22:06 Chlamydia DNA (PCR) NOT DETECTED (NOT DETECT) 09/02/19 22:30 Influenza A (Rapid) POSITIVE (NEGATIVE) 09/05/19 11:34 Influenza B (Rapid) POSITIVE (NEGATIVE) 09/05/19 11:34 N.gonorrhoeae DNA (PCR) NOT DETECTED (NOT DETECT) 09/02/19 22:30 Slides for Path Review Cancelled 09/04/19 06:51 Blood Type B POSITIVE 09/02/19 22:06 Antibody Screen NEGATIVE 09/02/19 22:06 Impressions: Obstetrics Ultrasound 09/02/19 00:00 IMPRESSION: 1. Single living intrauterine in cephalic presentation. 2. Estimated gestational age by ultrasound is 34 weeks four days with estimated delivery date of 10/10/2019. 3. Severe oligohydramnios Plan Plan of Treatment: follow up at [facility] in one week for incision check
[2019-09-08 13:19] VITALS: BP 121/63
== END 2019-09-08 16:00 | disposition home or self-care (01) | DRG 786 ==
LOC: LC 19:41 → LR 20:53 → 2N 09-05 21:50
PROVIDERS: ADMIT Obstetrics & Gynecology; ATTEND Obstetrics & Gynecology
PROC: 10D00Z1 Extraction of Products of Conception, Low, Open Approach (ICD-10-PCS; principal; 2019-09-05)
DX: O42.013 Preterm premature rupture of membranes, onset of labor within 24 hours of rupture, third trimester (principal); O41.1230 Chorioamnionitis, third trimester, not applicable or unspecified; O98.52 Other viral diseases complicating childbirth; O34.211 Maternal care for low transverse scar from previous cesarean delivery; J11.1 Influenza due to unidentified influenza virus with other respiratory manifestations; F17.210 Nicotine dependence, cigarettes, uncomplicated; O99.02 Anemia complicating childbirth; D64.9 Anemia, unspecified; O76 Abnormality in fetal heart rate and rhythm complicating labor and delivery; Z3A.34 34 weeks gestation of pregnancy; Z37.0 Single live birth
CPT/HCPCS: 1961; 36415; 76815; 80307; 81001; 84112; 85025; 85027; 86592; 86850; 86900; 86901; 87077; 87081; 87491; 87591; 87804; 88307; 96372; J0131; J0290; J0690; J0702; J1170; J1885; J2210; J2250; J2270; J2370; J2405; J2590; J3010; J3490; J7050; J7120